=== PATIENT | male | born 1950 | race Caucasian/White ===

== ENCOUNTER 2019-07-09 00:59 | Day surgery (SDC) | payer MEDICARE, OTHER, SELFPAY ==
[2019-07-07 13:58] VITALS: BMI 27.4
--- NOTE | 2019-07-09 10:03 | WPDANESEPPF ---
Anes - Initial Pre Proc Eval Procedure: Operation Date: 07/09/19 11:30 Proposed Procedures p Colonoscopy - Lon Michaels MD Date/Time: 07/09/19 10:03 Surgeon: Lon Michaels MD Pre Op Diagnosis: Change in Bowel Habits Patient Data Age: 69 Gender: M Height: 1.73 m Weight: 82 kg Allergies Allergy/AdvReac Type Severity Reaction Status Date / Time No Known Allergies Allergy Verified 07/07/19 13:53 Home Medications Medication Instructions Recorded Confirmed Type aspirin 81 mg tablet,delayed 81 mg PO DAILY 05/13/19 07/07/19 History release glimepiride 1 mg tablet 1 mg PO QAM 05/13/19 07/07/19 History lisinopril 40 mg tablet 40 mg PO DAILY 05/13/19 07/07/19 History pioglitazone 45 mg tablet 45 mg PO DAILY 05/13/19 07/07/19 History pravastatin 20 mg tablet 20 mg PO DAILY 05/13/19 07/07/19 History metformin 500 mg tablet 2,000 mg PO DAILY tablet 06/30/19 07/07/19 History [id number]-vit K-lycop 400 tablet PO DAILY 07/07/19 07/07/19 History [Men's Multivitamin] Patient hx anesthesia problems: none Family hx anesthesia problems: none PMFSH Past Medical History Medical History (Updated 07/09/19 @ 10:04 by Thor Watkins MD) Essential hypertension Hypercholesterolemia Tinnitus of both ears Type 2 diabetes mellitus without complication, without long-term current use of insulin Social History Social History (Updated 06/30/19 @ 09:57 by Ruth Phelps) Smoking status: Former smoker Smoking end date: 06/02/96 Alcohol intake: current Substance use: never Substance use type: does not use Anes - Eval Final PreProcedure Day of Procedure 07/09/19 10:03 Patient weight: overweight Heart: regular rate and rhythm Lungs: clear to auscultation and normal air movement Airway: Mallampati scale class II Neurological: alert and oriented Last oral intake: >/= 8 hours ASA classification: III Emergent: no Anesthetic plan: proceed Anesthesia type and monitoring: general GIVS Informed Consent: The patient's anesthetic plan and its attendant risks and benefits were discussed with the patient/family/POA. Questions were solicited and answers provided to the satisfaction of the patient/family/POA.
[2019-07-09 10:38] VITALS: BP 169/85; PULSE 105; RESP 20; TEMP 36.6; O2SAT 95
[2019-07-09 11:00] LABS: Glucose Point of Care 176 (65-105)
[2019-07-09] MEDS: LACTATED RINGERS 1,000 ML 150 ML IV CONT (11:00)
--- NOTE | 2019-07-09 11:08 | PM.HPGS ---
History of Present Illness History of Present Illness Consent: Risks, benefits, and alternatives have been discussed and questions answered. Patient agrees to proceed with procedure. Chief complaint: Change in Bowel Habits Narrative: Michael Caldwell is a 69 year old male with a change in bowel habits. A few weeks ago be he began having very frequent and loose stools with a great deal of urgency. Now his stools are more formed but he has very small soft stool. He is also having episodes wherein he will pass some bloody mucus strings. [facility] Past Medical History Medical History Essential hypertension Hypercholesterolemia Tinnitus of both ears Type 2 diabetes mellitus without complication, without long-term current use of insulin Family History Family History Father Hypertension Family history of coronary artery disease Mother Hypertension Sibling Malignant neoplasm of prostate Social History Social History (Updated 06/30/19 @ 09:57 by Ruth Phelps) Smoking status: Former smoker Smoking end date: 06/02/96 Alcohol intake: current Substance use: never Substance use type: does not use Meds Home Medications and Allergies Home Medications Medication Instructions Recorded Confirmed Type aspirin 81 mg tablet,delayed 81 mg PO DAILY 05/13/19 07/09/19 History release glimepiride 1 mg tablet 1 mg PO QAM 05/13/19 07/09/19 History lisinopril 40 mg tablet 40 mg PO DAILY 05/13/19 07/09/19 History pioglitazone 45 mg tablet 45 mg PO DAILY 05/13/19 07/09/19 History pravastatin 20 mg tablet 20 mg PO DAILY 05/13/19 07/09/19 History metformin 500 mg tablet 2,000 mg PO DAILY tablet 06/30/19 07/09/19 History sbguislh-xqs-plane-vit K-lycop 400 tablet PO DAILY 07/07/19 07/09/19 History [Men's Multivitamin] Allergies Allergy/AdvReac Type Severity Reaction Status Date / Time No Known Allergies Allergy Verified 07/09/19 10:37 Vital Signs Vital Signs - 24 hr 07/09/19 10:38 Temperature 36.6 C Pulse Rate 105 H Respiratory Rate 20 Blood Pressure 169/85 H Pulse Oximetry 95 Exam Resp: Auscultation: clear to auscultation bilaterally Cardio: Rate: regular rate Rhythm: regular rhythm GI: GI Palp: Yes Soft to palpation and No Tenderness to palpation present (GI) Assessment and Plan Assessment and plan (1) Change in bowel habits: Code(s): R19.4 - Change in bowel habit Status: Acute Assessment and Plan: Colonoscopy with possible biopsy or polypectomy or cautery or injection of substances.
[2019-07-09 11:35] VITALS: BP 113/70; PULSE 99; RESP 23; O2SAT 98
[2019-07-09 11:45] VITALS: BP 126/84; PULSE 96; RESP 24; O2SAT 97
[2019-07-09 11:55] VITALS: BP 123/97; PULSE 98; RESP 22; O2SAT 99
== END 2019-07-09 12:01 | disposition home or self-care (01) ==
PROVIDERS: PCP Family Medicine; Visit Provider Internal Medicine Gastroenterology
PROC: 0DJD8ZZ Inspection of Lower Intestinal Tract, Via Natural or Artificial Opening Endoscopic (ICD-10-PCS; CPT 45378; principal; 2019-07-09 11:30)
DX: C20 Malignant neoplasm of rectum (principal); K64.8 Other hemorrhoids; K57.30 Diverticulosis of large intestine without perforation or abscess without bleeding; I10 Essential (primary) hypertension; E78.00 Pure hypercholesterolemia, unspecified; E11.9 Type 2 diabetes mellitus without complications; Z79.82 Long term (current) use of aspirin; Z79.84 Long term (current) use of oral hypoglycemic drugs; Z87.891 Personal history of nicotine dependence
CPT/HCPCS: 45380; 88305; J2704; J7120

== ENCOUNTER 2019-07-23 14:36 | Outpatient (CLI) | payer MEDICARE, OTHER, SELFPAY ==
[2019-07-23 15:00] LABS: Basophils Percent Auto 0.4 % (0.2-1.2); Eosinophils Absolute Auto 0.1 K/mm3 (0-0.3); Hematocrit 42.3 % (42.0-52.0); Hemoglobin 13.5 g/dL (14.0-18.0); Immature Granulocyte Absolute 0.05 K/mm3 (0.00-0.031); Immature Granulocyte Percent A 0.6 % (0-0.5); Lymphocytes Percent Auto 20.4 % (18.3-44.2); Mean Corpuscular HGB Conc 31.9 g/dl (32-36); Mean Corpuscular Hemoglobin 29.3 pg (26-34); Mean Platelet Volume 9.4 fl (7.4-10.4); Monocytes Absolute Auto 1.1 K/mm3 (0.1-0.6); Monocytes Percent Auto 14.5 % (2.6-8.5); Neutrophils Percent Auto 63.1 % (45.5-73.1); Platelet Count Result 383 k/mm3 (150-375); Red Cell Distribution Width 13.4 % (11.5-14.5); White Blood Count 7.9 K/mm3 (4.5-10.0)
[2019-07-23 16:32] LABS: Alanine Aminotransferase 67 U/L (4-50); Albumin Level 3.7 g/dL (3.5-5.1); Alkaline Phosphatase 198 U/L (38-126); Aspartate Amino Transferase 70 U/L (17-59); Bilirubin,Total 0.5 mg/dL (0.2-1.3); Blood Urea Nitrogen 17 mg/dL (9-20); Calcium 10.3 mg/dL (8.4-10.2); Carbon Dioxide 30 mmol/L (22-30); Chloride 96 mmol/L (98-107); Estimated Glomerular Filt Rate > 60; Glucose 170 mg/dL (75-110); Potassium 4.9 mmol/L (3.4-5.0); Sodium 138 mmol/L (137-145)
[2019-07-23 17:03] LABS: Carcinoembryonic Antigen 15.4 ng/mL (0.0-3.0)
== END 2019-07-23 14:37 | disposition home or self-care (01) ==
LOC: ANHLAB 14:39
PROVIDERS: PCP Family Medicine; Visit Provider Internal Medicine Hematology & Oncology
DX: C20 Malignant neoplasm of rectum (principal)
CPT/HCPCS: 36415; 80053; 82378; 85025